=== PATIENT | male | born 1970 | race Two or more races ===

== ENCOUNTER 2019-03-27 11:13 | Emergency (ER) | payer MEDICAID ==
[~2019-03-27] VITALS: Ht 175.3 cm; Wt 90.7 kg
[2019-03-27 12:00] VITALS: BP 131/88
== END 2019-03-27 12:20 | disposition home or self-care (01) ==
LOC: ER 11:23
DX: F32.9 Major depressive disorder, single episode, unspecified (principal); F20.9 Schizophrenia, unspecified; F17.210 Nicotine dependence, cigarettes, uncomplicated; Z76.0 Encounter for issue of repeat prescription